=== PATIENT | female | born 1970 | race African-American/Black ===

== ENCOUNTER 2022-04-20 04:29 | Emergency (ER) | payer MEDICARE ==
[~2022-04-20] VITALS: Ht 149.9 cm; Wt 51.9 kg
[2022-04-20 04:59] VITALS: BP 142/92
== END 2022-04-20 08:20 | disposition left against medical advice (07) ==
LOC: ER 04:29
DX: R05.9 Cough, unspecified (principal); E11.9 Type 2 diabetes mellitus without complications; I49.9 Cardiac arrhythmia, unspecified; Z20.822 Contact with and (suspected) exposure to COVID-19; Z88.0 Allergy status to penicillin; Z98.890 Other specified postprocedural states
CPT/HCPCS: 87426; 93005; 99284; C9803